=== PATIENT | female | born 1955 | race Two or more races ===

== ENCOUNTER 2021-03-04 11:00 | Day surgery (SDC) | payer OTHER | END 2021-03-04 15:40 | disposition home or self-care (01) | LOC: AMB-ENDOS 11:00 | PROVIDERS: ATTEND Surgery | DX: K62.3 Rectal prolapse (principal); Z12.11 Encounter for screening for malignant neoplasm of colon; Z20.822 Contact with and (suspected) exposure to COVID-19 ==